=== PATIENT | female | born 1985 | race American Indian/Alaskan Native ===

== ENCOUNTER 2017-04-05 12:48 | Emergency (ER) | payer SELFPAY ==
[2017-04-05 13:01] VITALS: BP 131/93
--- NOTE | 2017-04-05 14:09 | Emergency Department Report ---
HPI - General Chief Complaint: Upper Respiratory Infection Time Seen by Provider: 04/05/17 14:08 - HPI HPI: Patient reports that she's been coughing for 3 weeks. She said she has sinus congestion and pressure around her nasal area. Denies any fever or chills. She says she has dry cough. Denies any shortness of breath or chest pain. Reports nasal congestion and runny nose. She says she tried [id number] cold medication but it's not helping. Denies any nausea or vomiting. Pain is 0 -10 at present. ED Past Medical Hx - Past Medical History Previous Medical History?: No - Surgical History Past Surgical History?: No - Family History Family history: no significant - Social History Smoking Status: Never Smoker Substance Use Type: Alcohol - Medications Home Medications: Home Medications Medication Instructions Recorded Confirmed Last Taken Type Amoxicillin/K Clav Tab [Augmentin 1 tab PO Q12HR #20 tab 04/05/17 Unknown Rx 875 mg] Cetirizine HCl [ZyrTEC] 10 mg PO QAM #14 capsule 04/05/17 Unknown Rx Fluticasone [Flonase] 1 spray NS QDAY #1 bottle 04/05/17 Unknown Rx guaiFENesin/CODEINE [Robitussin AC] 5 ml PO BID PRN #70 udc 04/05/17 Unknown Rx ED Review of Systems ROS: Stated complaint: COLD Other details as noted in HPI Comment: All other systems reviewed and negative Constitutional: no symptoms reported Eyes: denies: eye pain, eye discharge, vision change ENT: congestion (nasal congestion and drainage). denies: ear pain, throat pain Respiratory: cough. denies: orthopnea, shortness of breath, SOB with exertion, SOB at rest, stridor, wheezing Cardiovascular: denies: chest pain, dyspnea on exertion, orthopnea, edema, syncope, paroxysmal nocturnal dyspnea Gastrointestinal: denies: abdominal pain, nausea, vomiting Genitourinary: denies: dysuria Musculoskeletal: denies: back pain, joint swelling, arthralgia, myalgia Skin: denies: rash Neurological: denies: headache, numbness, paresthesias, confusion, abnormal gait , vertigo Physical Exam - Physical Exam Vital Signs: Vital Signs 04/05/17 12:59 Temperature 98.8 F Pulse Rate 96 H Respiratory 18 Rate Blood Pressure 131/93 O2 Sat by Pulse 100 Oximetry General: This is a 31-year-old female well-nourished well-developed in no acute distress Physical Exam: Head: Normocephalic atraumatic Ears:BIateral TM congested without erythema. Bilateral EAC without any redness or swelling. No mastoid bone tenderness. Mouth: Moist, no pharyngeal erythema or exudate . No Peritonsillar abscesses, UVULA midline and oral airways patent. Neck: Nontender to palpate, supple, normal range of motion. No adenopathy. No c- spine tenderness. Nose: Bilateral nasal mucosa congested and erythema with clear drainage. Maxillary and frontal sinuses tender to palpate. Eyes: Sclerae and conjunctiva without injection. Bilateral pupils equal and reactive to light. Bilateral lids are normal. Normal accommodation.BEOMI Lungs: Clear to auscultate bilaterally, no rhonchi wheezes or rales. Normal work of breathing and no chest wall tenderness. Dry cough CV: S1, S2. Regular rate and rhythm negative murmur. Capillary refill is less than 3 seconds Skin: Clean dry and intact, no rashes or lesions PSYCH: Normal mood and behavior ED Course Vital Signs 04/05/17 12:59 Temperature 98.8 F Pulse Rate 96 H Respiratory 18 Rate Blood Pressure 131/93 O2 Sat by Pulse 100 Oximetry - Reevaluation(s) Reevaluation #1: 04/05/17 15:33 Patient stable throughout ED stay ED Medical Decision Making - Medical Decision Making ED course: Patient presents to emergency room complaining of cough and sinus pressure 3 weeks. Patient vital signs are stable and she is afebrile. Physical findings for acute sinusitis with cough. Discharge diagnosis and treatment plan explained to patient and she was understanding she does have access to primary care physician so I told her she needs to follow-up with her primary care in 3-5 days. Patient discharged home in stable condition with prescription for Augmentin, Flonase, Zyrtec and guaifenesin with codeine cough syrup. Critical care attestation.: If time is entered above; I have spent that time in minutes in the direct care of this critically ill patient, excluding procedure time. ED Disposition Clinical Impression: Cough Acute sinusitis Qualifiers: Sinusitis location: unspecified location Recurrence: not specified as recurrent Qualified Code(s): J01.90 - Acute sinusitis, unspecified Disposition: DC-01 TO HOME OR SELFCARE Is pt being admited?: No Does the pt Need Aspirin: No Condition: Stable Instructions: Sinusitis (ED), Acute Cough (ED) Additional Instructions: Please increase her fluid intake Flush nostrils with saline nasal spray take antibiotic and other medication as prescribed F/U with primary care physician and if he do not have one you can follow up with [facility] as instructed If you cough persists he will need to follow. Primary care physician. Please do not drive or operate heavy machinery while taking cough medicine at this medication causes drowsiness Prescriptions: Amoxicillin/K Clav Tab [Augmentin 875 mg] 1 tab PO Q12HR #20 tab Cetirizine HCl [ZyrTEC] 10 mg PO QAM #14 capsule Fluticasone [Flonase] 1 spray NS QDAY #1 bottle guaiFENesin/CODEINE [Robitussin AC] 5 ml PO BID PRN #70 udc PRN Reason: Cough Referrals: PRIMARY CARE, [Primary Care Provider] - 3-5 Days Forms: Work/School Release Form(ED)
== END 2017-04-05 15:59 | disposition home or self-care (01) ==
LOC: ED 12:48
DX: J01.90 Acute sinusitis, unspecified (principal); R05 Cough
CPT/HCPCS: 99282